=== PATIENT | male | born 1980 ===

== ENCOUNTER 2017-02-12 07:15 | Emergency (ER) | payer OTHER ==
--- NOTE | 2017-02-12 09:09 | RAD ---
HISTORY: fever/cough COMPARISON: No prior. TECHNIQUE: Chest PA and lateral FINDINGS: LUNGS: No active pulmonary disease. PLEURA: No significant pleural effusion identified. No pneumothorax apparent. CARDIOVASCULAR: Normal. OSSEOUS STRUCTURES: No significant abnormalities. VISUALIZED UPPER ABDOMEN: Normal. OTHER FINDINGS: None. IMPRESSION: No active disease.
[2017-02-12 09:30] VITALS: O2SAT 97
--- NOTE | 2017-02-12 11:25 | C.PDOC ---
History Of Present Illness 36 year old patient presents to the ED complaining of flu-like symptoms since last night. Patient states he has fever, chills, a sore throat and cough. Patient denies any nausea, vomiting, diarrhea or abdominal pain. Time Seen by Provider: 02/12/17 07:52 Chief Complaint (Nursing): Flu-like Symptoms History Per: Patient History/Exam Limitations: no limitations Onset/Duration Of Symptoms: Days (last night) Current Symptoms Are (Timing): Still Present Location Of Pain: Throat Sick Contacts (Context): None Associated Symptoms: Fever, Chills, Sore Throat, Cough Ear Symptoms: Bilateral: None Severity: Mild Pain Scale Rating Of: 3 Recent travel outside of the [place]: No Past Medical History Reviewed: Historical Data, Nursing Documentation, Vital Signs Vital Signs: Last Vital Signs Temp 97.4 F L 02/12/17 11:36 Pulse 77 02/12/17 11:36 Resp 18 02/12/17 11:36 BP 108/77 02/12/17 11:36 Pulse Ox 97 02/12/17 11:54 Family History: States: Unknown Family Hx - Social History Hx Alcohol Use: No Hx Substance Use: No Review Of Systems Except As Marked, All Systems Reviewed And Found Negative. Constitutional: Positive for: Fever, Chills ENT: Positive for: Throat Pain Respiratory: Positive for: Cough Gastrointestinal: Negative for: Nausea, Vomiting, Abdominal Pain, Diarrhea Physical Exam - Physical Exam Appears: Non-toxic, No Acute Distress Skin: Warm, Dry Head: Atraumatic, Normacephalic Eye(s): bilateral: Normal Inspection, PERRL, EOMI Ear(s): Bilateral: Normal Nose: Normal Oral Mucosa: Moist Throat: Erythema, No Exudate Neck: Normal ROM, Supple Chest: Symmetrical Cardiovascular: Rhythm Regular Respiratory: Normal Breath Sounds, No Rales, No Rhonchi, No Wheezing Back: Normal Inspection Neurological/Psych: Oriented x3, Normal Speech, Normal Cognition Gait: Steady ED Course And Treatment O2 Sat by Pulse Oximetry: 97 (room air) Pulse Ox Interpretation: Normal Interpretation Of Abnormal: Plan: Chest x-ray, Tylenol, Throat culture, Influenza A B stat, Rapid strep. Influenza A B stat: negative. Rapid strep: negative. Upon reassessment, patient is resting comfortably, tolerating PO, and is afebrile at this time. Patient will be discharge home, and instructed to follow up with his/her physician in 1-2 days without fail. Patient was instructed to return for any worsening symptoms, persistent fever, neck pain, rash, abdominal pain, or vomiting. - Other Rad CXR X-Ray: Viewed By Me, Read By Radiologist Interpretation: Accession No. : [id number]. Patient Name / ID : YOBANY Munroe / [id number]. Exam Date : 02/12/2017 07:57:44 ( Approved ). Study Comment : Sex / Age : M / 36Y. Creator : Jayson Zhao MD. Dictator : Jayson Zhao MD. 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 Approver2 : Report Date : 02/12/2017 09:07:47. My Comment : . HISTORY: fever/cough. COMPARISON: No prior. TECHNIQUE: Chest PA and lateral. FINDINGS: LUNGS: No active pulmonary disease. PLEURA: No significant pleural effusion identified. No pneumothorax apparent. CARDIOVASCULAR: Normal. OSSEOUS STRUCTURES: No significant abnormalities. VISUALIZED UPPER ABDOMEN: Normal. OTHER FINDINGS: None. IMPRESSION: No active disease. Disposition - Disposition Referrals: [facility] [Outside] Disposition: HOME/ ROUTINE Disposition Time: 11:22 Condition: IMPROVED Additional Instructions: Follow up in Clinic within 1-2 days. Return to ED if feel worse. 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 - Scribe Statement The provider has reviewed the documentation as recorded by the Scribe Rhonda Michele All medical record entries made by the Scribe were at my direction and personally dictated by me. I have reviewed the chart and agree that the record accurately reflects my personal performance of the history, physical exam, medical decision making, and the department course for this patient. I have also personally directed, reviewed, and agree with the discharge instructions and disposition.
[2017-02-12 11:37] VITALS: BP 108/77; PULSE 77; RESP 18; TEMP 97.4
== END 2017-02-12 11:44 | disposition home or self-care (01) ==
LOC: C.ER 07:15
DX: J11.1 Influenza due to unidentified influenza virus with other respiratory manifestations (principal)